=== PATIENT | male | born 1960 | race Two or more races ===

== ENCOUNTER 2017-08-19 10:38 | Emergency (ER) | payer BC ==
[~2017-08-19] VITALS: Ht 180.3 cm; Wt 99.8 kg
[2017-08-19 11:01] VITALS: BP 168/82; Ht 180.3 cm; Wt 99.8 kg
== END 2017-08-19 11:55 | disposition home or self-care (01) ==
LOC: ED 10:38
DX: B02.9 Zoster without complications (principal)